=== PATIENT | female | born 1965 | race American Indian/Alaskan Native ===

== ENCOUNTER 2016-05-31 10:45 | Inpatient (IN) | payer SELFPAY ==
[2016-05-31] MEDS ORDERED: MOTRIN PO ONE (11:24)
--- NOTE | 2016-05-31 11:26 | Emergency Department Report ---
Chief Complaint: Weakness Stated Complaint: LOW BLOOD Time Seen by Provider: 05/31/16 11:21 - HPI History of Present Illness: 51-year-old -[place]i female with a past medical history of uterine fibroids coming in today for excessive vaginal bleeding. Patient is here visiting from [facility]. She does have a CREDIT CASHIER doctor that discussing treatment plan at this time. He reports that she is very weak she complains of belly pain and headache she also complains of shortness of breath and chest pains. She is reporting bleeding at this time - Exam Vital Signs: Vital Signs 05/31/16 11:07 Temperature 98.5 F Pulse Rate 120 H Respiratory 18 Rate Blood Pressure 108/57 O2 Sat by Pulse 100 Oximetry Physical Exam: Patient's alert and oriented 3 conjunctiva was pale buccal mucosa pale hands are pale capillary refills pale, cardiac pounding heart rate tachycardia at 120 , respiratory she's clear to auscultation abdomen soft some tenderness to the suprapubic area MSE screening note: Focused history and physical exam performed. Due to findings the following was ordered: Patient's been evaluated by this provider and MSE. CBC BMP type and screen, EKG ibuprofen for pain ED Disposition for MSE Condition: Stable
[2016-05-31 12:00] LABS: Mean Corpuscular HGB Conc 25 % (30-34); Red Blood Count 2.13 M/mm3 (3.65-5.03); White Blood Count 5.2 K/mm3 (4.5-11.0)
[2016-05-31 12:01] LABS: Mean Corpuscular Hemoglobin 14 pg (28-32); Mean Corpuscular Volume 55 fl (79-97)
[2016-05-31 12:05] LABS: Anion Gap 18 mmol/L; Blood Urea Nitrogen 12 mg/dL (7-17); Calcium 8.7 mg/dL (8.4-10.2); Carbon Dioxide 19 mmol/L (22-30); Chloride 106.4 mmol/L (98-107); Glucose 116 mg/dL (65-100); Potassium 3.8 mmol/L (3.6-5.0); Sodium 140 mmol/L (137-145)
[2016-05-31 12:06] LABS: Hematocrit 11.7 % (30.3-42.9); Hemoglobin 2.9 gm/dl (10.1-14.3)
[2016-05-31] MEDS ORDERED: NACL 0.9% 500 ML 500 ML IV ONE (12:12)
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
[2016-05-31 12:40] LABS: Platelet Count 92 K/mm3 (140-440)
--- NOTE | 2016-05-31 12:48 | XRay Report ---
AP CHEST: HISTORY: Shortness of breath AP view of the chest demonstrates a normal mediastinal and cardiac contour with clear lungs and normal bony and soft tissue structures. IMPRESSION: No acute cardiopulmonary process.
--- NOTE | 2016-05-31 13:00 | Admit Criteria Form ---
Admission Criteria Documentation: ANEMIA, IRON DEFICIENCY OR UNSPECIFIED Clinical Indications for Inpatient Care (Place 'X' for any and all applicable criteria): Admission is indicated for ANY ONE of the following(1)(2)(3)(4)(5)(6)(7): [X] I. Inpatient admission required rather than observation care (Also use Anemia, Iron Deficiency or Unspecified: Observation Care guideline as appropriate) because of ANY ONE of the following: [] a) Hemodynamic instability that is severe or persistent [] b) Active bleeding that cannot be rapidly controlled [X] c) CVS symptoms (i.e., dyspnea, chest pain, heart failure) that are severe or persistent [] d) Neurologic symptoms (i.e., cognitive impairment, recurrent syncope or near syncope) that are severe or persistent [] e) Cardiac arrhythmias of immediate concern [] f) Acute peripheral ischemia (e.g., pulseless, cool, mottled, or cyanotic extremity) [] g) High-risk low platelet count [] h) Acute renal failure [] i) Ongoing transfusion for blood loss (greater than 2 units) [] j) IV fluid to replace significant ongoing (eg, >24 hours) losses (> 3 L/m2 per day) [] k) Pulmonary artery catheter monitoring [] l) Supplemental oxygen or respiratory treatments for over 24 hours that are performable only in acute inpatient setting [] m) Immediate inpatient surgery [X] n) Other condition, treatment or monitoring requiring inpatient admission [] II Active massive hemorrhage [] III. Active hemolysis with rapidly progressive anemia [A](6) Extended stay beyond goal length of stay may be needed for (17)(18) []a) Diagnosed cause of anemia requiring longer hospitalization (eg, active GI bleeding, immune hemolysis requiring electrophoresis, complications of malignancy requiring acute care []b) Continued emergent anemia indicators (23) []c) Transfusion reactions []d) Associated leukopenia or thrombocytopenia needing inpatient care []e) Active comorbidities (eg, renal failure, heart failure) The original [facility] Care Guidelines content created by [facility] Guidelines has been revised. The portions of the content which have been revised are identified through the use of italic text or in bold. [facility] Guidelines has neither reviewed nor approved the modified material. All other unmodified content is copyright [facility] Guidelines. Please see references footnoted in the original [facility] edition 2016 Admission Criteria Met: Yes
--- NOTE | 2016-05-31 13:21 | Consultation ---
History of Present Illness Consult date: 05/31/16 Reason for consult: menorrhagia, other (acute and chronic anemia ) History of present illness: This is a 51 yo with hx of 9 years of fibroids and heavy bleeding. She is from [place] and is here visiting her daughter and gamal. She started bleeding yesterday as she normally does changing 6 pads per day. She came to ER here and noted to have a HGB of 2. She is having heavy bleeding currently. Past History Past Medical History: no pertinent history Past Surgical History: no surgical history [facility] History: fibroids Family/Genetic History: none Social history: single Medications and Allergies Allergies Allergy/AdvReac Type Severity Reaction Status Date / Time No Known Allergies Allergy Unverified 05/31/16 11:06 Home Medications Medication Instructions Recorded Confirmed Last Taken Type Ferrous Sulfate [Feosol] 325 mg PO TID 05/31/16 05/31/16 Unknown History Active Meds: Active Medications Medroxyprogesterone Acetate (Depo-Provera (Contraception)) 150 mg IM ONCE.ED ONE Stop: 05/31/16 14:01 Review of Systems Constitutional: no weight loss, no chills, no sweats Eyes: normal appearance Ears, nose, mouth and throat: deferred Cardiovascular: no chest pain, no orthopnea, no palpitations Breasts: normal Gastrointestinal: no abdominal pain, no vomiting, no hematochezia Genitourinary: normal appearance, vaginal bleeding Rectal Exam: deferred Integumentary: deferred - Vital Signs Vital signs: Vital Signs Temp Pulse Resp BP Pulse Ox 98.5 F 120 H 18 108/57 100 05/31/16 11:07 05/31/16 11:07 05/31/16 11:07 05/31/16 11:07 05/31/16 11:07 Temp Pulse Resp BP Pulse Ox 98.5 F 120 H 22 108/57 95 05/31/16 11:07 05/31/16 11:07 05/31/16 12:32 05/31/16 11:07 05/31/16 12:32 - Physical Exam Breasts: Positive: normal Cardiovascular: Regular rate, Normal S1 Abdomen: Positive: normal appearance, soft, normal bowel sounds. Negative: distention, tenderness, guarding Genitourinary (Female): Positive: normal external genitalia, normal perenium Vulva: both: normal Vagina: Positive: normal moisture Uterus: Positive: enlarged (20 weeks size). Negative: normal contour, tender Adnexa: both: normal Anus/Rectum: Positive: normal perianal skin Extremities: Positive: normal Deep Tendon Reflex Grade: Normal +2 Results Result Diagrams: 05/31/16 11:30 05/31/16 11:30 Abnormal lab results 05/31/16 05/31/16 05/31/16 Range/Units 11:30 11:30 11:34 RBC 2.13 L (3.65-5.03) M/mm3 Hgb 2.9 L* (10.1-14.3) gm/dl Hct 11.7 L* (30.3-42.9) % MCV 55 L (79-97) fl MCH 14 L (28-32) pg MCHC 25 L (30-34) % RDW 30.0 H (13.2-15.2) % Plt Count 92 L (140-440) K/mm3 Carbon Dioxide 19 L (22-30) mmol/L Glucose 116 H (65-100) mg/dL Crossmatch See Detail All other labs normal. Assessment and Plan HD#1 here for menorrhagia and acute anemia consulted recommneded depo provera 150mg IM x1 for bleeding agree with blood transfusion at least 4 U patient consulted that she will need hysterectomy will continue to follow with internal meds team
[2016-05-31] MEDS ORDERED: DEPO-PROVERA (CONTRACEPTION) IM ONE (14:00)
[2016-05-31] MEDS ORDERED: NACL 0.9% 500 ML 500 ML ONE (15:36)
[2016-05-31] MEDS: PEPCID PO SCH (23:15)
--- NOTE | 2016-05-31 23:23 | Event Note ---
Date: 05/31/16 See H/p in reports Severe Anemia Menorrhagia Needs Hysterectomy
[2016-06-01 00:08] LABS: Hemoglobin 4.4 gm/dl (10.1-14.3)
[2016-06-01 07:44] LABS: Hemoglobin 6.3 gm/dl (10.1-14.3)
--- NOTE | 2016-06-01 08:59 | Ultrasound Report ---
TRANSABDOMINAL AND TRANSVAGINAL PELVIC ULTRASOUND: FINDINGS: The uterus is markedly enlarged measuring 16.2 x 11.3 x 11.5 cm. There are multiple uterine masses, the largest of which is located in the fundus, is pedunculated, and measures 6.5 x 3.4 x 5.8 cm. Multiple additional fibroids are seen in the anterior fundus and lower uterine segment posteriorly. The endometrial echo measures 10 mm in thickness. The ovaries are normal in size configuration. IMPRESSION: Enlarged uterus with multiple uterine fibroids.
[2016-06-01] MEDS: PEPCID PO SCH (09:03)
[2016-06-01 10:15] LABS: Hematocrit 20.8 % (30.3-42.9); Hemoglobin 6.5 gm/dl (10.1-14.3)
[2016-06-01] MEDS ORDERED: NACL 0.9% 500 ML 500 ML IV NR (10:34)
--- NOTE | 2016-06-01 10:50 | Discharge Summary ---
Providers - Providers Date of Admission: 05/31/16 12:30 Date of discharge: 06/01/16 Attending physician: KARTIK BRYSON Primary care physician: HONEY ZHANG MD Hospitalization Condition: Fair Disposition: DISCHARGED TO HOME OR SELFCARE - Discharge Diagnoses (1) Anemia due to acute blood loss Status: Acute (2) Menorrhagia Status: Acute Qualifiers: Menorrahagia type: with onset of menstrual periods Qualified Code(s): N92.2 - Excessive menstruation at puberty (3) Symptomatic anemia Status: Acute Core Measure Documentation - Palliative Care Palliative Care/ Comfort Measures: Not Applicable - Core Measures Any of the following diagnoses?: none Exam - Constitutional Vitals: Temp Pulse Resp BP Pulse Ox 986 F H 80 15 116/61 100 06/01/16 07:15 06/01/16 07:15 06/01/16 07:15 06/01/16 07:15 06/01/16 07:15 Plan Activity: advance as tolerated Diet: regular Additional Instructions: 1.Follow up with PCP in 1 week. 2.Follow up with Rice Field Worker in 3-5 days Follow up with: PRIMARY CAREMD [Primary Care Provider] - 3-5 Days Prescriptions: Docusate Sodium [Colace] 100 mg PO BID #60 capsule Famotidine [Pepcid] 20 mg PO BID #60 tablet Ferrous Sulfate [Feosol 325 MG tab] 325 mg PO TID #90 tablet
[2016-06-01 17:03] VITALS: BP 115/65
[2016-06-01 18:19] LABS: Hematocrit 25.5 % (30.3-42.9); Hemoglobin 8.2 gm/dl (10.1-14.3)
--- NOTE | 2016-06-01 21:12 | History and Physical Report ---
CHIEF COMPLAINT: 1. Severe weakness. 2. Severe bleeding from the vagina for the last 5 days. HISTORY OF PRESENT ILLNESS: A 51-year-old with 4, para 3, comes in for 9 pads a days of severe bleeding during her menstrual periods, which lasts for 5 days and changes about 9 pads a day, goes to 45 pads every menstrual period. She is from [place] and she was advised to have hysterectomy many times, but she refused to have hysterectomy. Now, she is willing to have hysterectomy, comes in for feeling very weak. PAST MEDICAL HISTORY: Other than anemia, no significant past medical history. PAST SURGICAL HISTORY: None. TELEPHONE ORDER DISPATCHER HISTORY: Severe fibroids. FAMILY HISTORY: No hypertension, no diabetes. SOCIAL HISTORY: Does not smoke. No alcohol, no recreational drugs. CURRENT MEDICATIONS: Ferrous sulfate 325 mg 3 times a day. REVIEW OF SYSTEMS: Other than feeling weak, review of systems is essentially negative. All 14 systems reviewed. PHYSICAL EXAMINATION: GENERAL: Middle-aged female, cooperative during examination. VITAL SIGNS: Temperature is 98.5, pulse is 120, respirations are 18, blood pressure 108/57. HEENT: Pale mucous membranes and pale tongue. Pupils equal and reactive. NECK: Supple, no lymphadenopathy, no thyromegaly. LUNGS: Clear to auscultation and percussion. Good air entry. CARDIOVASCULAR: S1, S2 heard. No gallop, no murmur, no rub. Apical impulse in the left fifth intercostal space and midclavicular line. ABDOMEN: Soft and benign. No hepatosplenomegaly. No guarding, no rigidity. Hernial orifices are normal. EXTREMITIES: Good pedal pulses. No pedal edema. CENTRAL NERVOUS SYSTEM: Alert and oriented x4, nonfocal exam. SKIN: Normal. LABORATORY DATA: Significant for hemoglobin of 2.9, hematocrit of 11.7. Electrolytes are normal. ASSESSMENT AND PLAN: 1. Acute anemia secondary to blood loss. The patient to be transfused 4-6 units of blood. TELEPHONE ORDER DISPATCHER consult requested for a possible hysterectomy during this hospitalization as an outpatient. 2. Menorrhagia, Depo-Provera 150 mg IM x1 ordered. 3. Deep venous thrombosis prophylaxis. No Lovenox at this point. Only sequential compression devices. Admission for 1-2 days. JOB# [id number] [facility]
== END 2016-06-01 19:19 | disposition home or self-care (01) | DRG 812 ==
LOC: ED 10:45 → 3A 12:30
PROVIDERS: ADMIT Internal Medicine; ATTEND Internal Medicine
PROC: 30233N1 Transfusion of Nonautologous Red Blood Cells into Peripheral Vein, Percutaneous Approach (ICD-10-PCS; principal; 2016-05-31)
DX: D62 Acute posthemorrhagic anemia (principal); N92.0 Excessive and frequent menstruation with regular cycle
CPT/HCPCS: 36415; 71010; 76830; 76856; 80048; 85014; 85018; 85027; 86850; 86870; 86900; 86901; 86922; 93005; 93010; 96372; J1050; J7040; P9016